=== PATIENT | female | born 1985 | race Caucasian/White ===

== ENCOUNTER 2020-06-27 05:06 | Inpatient (IN) | payer OTHER, SELFPAY ==
[~2020-06-27] VITALS: Ht 162.6 cm; Wt 85.7 kg
[2020-06-27] MEDS ORDERED: ONDANSETRON 4 MG ODT TAB PO ONE ×2 (08:45→09:00)
[2020-06-27] MEDS ORDERED: MORPHINE SULFATE 10 MG/ML VIAL IM ONE (08:45)
[2020-06-27] MEDS ORDERED: FLU VACC QS2020-21 (6 mos & up) 0.5 ML/SYRINGE I.M. PRN (09:45)
[2020-06-27 09:51] VITALS: BP_SYST 136
[2020-06-27] MEDS ORDERED: LR 1,000 ML IV ONE (10:45)
[2020-06-27] MEDS ORDERED: CEFAZOLIN 2 GM IVPB PREMIX 50 ML IV ONE (10:45)
[2020-06-27 11:17] LABS: BASOPHILS # (AUTO) 0.1 K/uL (0.0-0.2); BASOPHILS % (AUTO) 0.8 % (0.0-2.0); EOSINOPHILS % (AUTO) 0.1 % (0.0-4.0); HEMATOCRIT 34.3 % (36-48); HEMOGLOBIN 11.6 g/dL (12.0-16.0); LYMPHOCYTES # (AUTO) 1.5 K/uL (1.0-5.5); LYMPHOCYTES % (AUTO) 16.5 % (20.5-51.5); MEAN CORPUSCULAR HEMOGLOBIN 30 pg (27-31); MEAN CORPUSCULAR HGB CONC 34 % (32-36); MEAN CORPUSCULAR VOLUME 88 fL (79.0-98.0); MONOCYTES # (AUTO) 0.5 K/uL (0.0-1.0); MONOCYTES % (AUTO) 5.6 % (1.7-9.3); NEUTROPHILS # (AUTO) 6.8 K/uL (1.8-7.7); PLATELET COUNT (AUTO) 147 K/uL (130-430); RED BLOOD CELL COUNT(AUTO) 3.88 MIL/uL (4.2-6.2); RED CELL DISTRIBUTION WIDTH 14.2 % (9.0-15.0); WHITE BLOOD COUNT (AUTO) 8.9 K/uL (4.8-10.8)
[2020-06-27] MEDS ORDERED: TEMAZEPAM 15 MG CAPSULE PO PRN (13:15)
[2020-06-27] MEDS ORDERED: SENNOSIDES/DOCUSATE SODIUM 1 TAB TABLET(SENOKOT-S) PO PRN (13:15)
[2020-06-27] MEDS ORDERED: DIPH-TET-PERTUS Vaccine 0.5 ML VIAL (ADACEL) I.M. PRN (13:15)
[2020-06-27] MEDS ORDERED: LANOLIN 7 GM OINT. TP PRN (13:15)
[2020-06-27] MEDS ORDERED: DOCUSATE SODIUM 100 MG CAPSULE PO PRN (13:15)
[2020-06-27] MEDS ORDERED: ANUSOL 1 EA SUPP.RECT (PREPARATION H) RC PRN (13:15)
[2020-06-27] MEDS ORDERED: OXYTOCIN/0.9 % SODIUM CHLORIDE 1,000 ML IV ONE ×2 (13:15→14:29)
[2020-06-27] MEDS ORDERED: OXYCODONE/ACETAMINOPHEN 5-325 TABLET PO PRN ×2 (13:15)
[2020-06-27] MEDS ORDERED: HYDROcodone/ACETAMIN 5-325 MG TAB (NORCO/ VICODIN) PO PRN (13:15)
[2020-06-27] MEDS ORDERED: LR 1,000 ML IV SCH (13:15)
[2020-06-27] MEDS ORDERED: RHO(D) IMMUNE GLOBULIN/MALTOSE 1500 UNITS/1.3 ML (WINHRO) IM PRN (13:15)
[2020-06-27] MEDS ORDERED: MEASLES,MUMPS&RUBELLA VACC/PF 12500 UNIT/0.5 ML VIAL SUBQ PRN (13:15)
[2020-06-27] MEDS ORDERED: BISACODYL 10 MG/SUPPOSITORY RC PRN (13:15)
[2020-06-27 13:22] VITALS: BP_SYST 110
[2020-06-27] MEDS ORDERED: MORPHINE SULFATE 10MG/10ML PF AMP SP SCH (13:30)
[2020-06-27] MEDS ORDERED: DIPHENHYDRAMINE INJ 50 MG/ML VIAL IM PRN (13:30)
[2020-06-27] MEDS ORDERED: NALOXONE HCL 0.4 MG/ML AMP (NARCAN) IVP PRN (13:30)
[2020-06-27] MEDS ORDERED: KETOROLAC TROMETHAMINE 60 MG/2 ML VIAL IM PRN (13:30)
[2020-06-27] MEDS: ONDANSETRON HCL 4 MG/2 ML VIAL IVP PRN ×2 (15:46→20:38)
[2020-06-27] MEDS ORDERED: DEXAMETHASONE SOD PHOSPHATE 4 MG/ML VIAL IVP ONE (17:45)
[2020-06-28 06:32] LABS: BASOPHILS % (AUTO) 0.3 % (0.0-2.0); EOSINOPHILS % (AUTO) 0.1 % (0.0-4.0); HEMATOCRIT 31.4 % (36-48); HEMOGLOBIN 10.5 g/dL (12.0-16.0); LYMPHOCYTES # (AUTO) 1.9 K/uL (1.0-5.5); LYMPHOCYTES % (AUTO) 18.5 % (20.5-51.5); MEAN CORPUSCULAR HEMOGLOBIN 30 pg (27-31); MEAN CORPUSCULAR HGB CONC 34 % (32-36); MEAN CORPUSCULAR VOLUME 89 fL (79.0-98.0); MONOCYTES # (AUTO) 0.6 K/uL (0.0-1.0); MONOCYTES % (AUTO) 6.1 % (1.7-9.3); NEUTROPHILS # (AUTO) 7.5 K/uL (1.8-7.7); PLATELET COUNT (AUTO) 131 K/uL (130-430); RED BLOOD CELL COUNT(AUTO) 3.51 MIL/uL (4.2-6.2); RED CELL DISTRIBUTION WIDTH 14.2 % (9.0-15.0)
[2020-06-28] MEDS: IBUPROFEN 600 MG TABLET PO SCH ×3 (06:57→18:26)
[2020-06-28] MEDS: SIMETHICONE 80 MG TAB.CHEW PO PRN ×2 (11:58→18:26)
[2020-06-28] MEDS ORDERED: METOCLOPRAMIDE HCL 10 MG/2 ML VIAL IVP ONE (18:22)
[2020-06-28] MEDS ORDERED: LR 1,000 ML IV.SOLN IV ONE (18:22)
[2020-06-28] MEDS ORDERED: ONDANSETRON HCL 4 MG/2 ML VIAL IVP ONE (18:22)
[2020-06-28] MEDS ORDERED: MORPHINE SULFATE 10MG/10ML PF AMP EP ONE (18:22)
[2020-06-28] MEDS ORDERED: PHENYLEPHRINE HCL 10 MG/ML VIAL (NEOSYNEPHRINE) IV ONE (18:22)
[2020-06-28] MEDS ORDERED: BUPIVACAINE /DEX PF 0.75% SPINAL 2 ML AMP INJ ONE (18:22)
[2020-06-28] MEDS ORDERED: NS IRRIG SOLN 1000 ML IR ONE (18:22)
[2020-06-29] MEDS: SIMETHICONE 80 MG TAB.CHEW PO PRN ×2 (00:15→13:06)
[2020-06-29] MEDS: IBUPROFEN 600 MG TABLET PO SCH ×2 (00:15→13:06)
[2020-06-29 18:06] LABS: FTA-Ab (T PALLIDUM) Non Reactive (Non Reactive)
== END 2020-06-29 17:00 | disposition home or self-care (01) | DRG 788 ==
LOC: INTOOBSV 05:06 → SPU 05:06 → OBSVTOIN 10:15
PROVIDERS: ADMIT Obstetrics & Gynecology; ATTEND Obstetrics & Gynecology
PROC: 10D00Z1 Extraction of Products of Conception, Low, Open Approach (ICD-10-PCS; principal; 2020-06-27 12:20)
DX: O77.9 Labor and delivery complicated by fetal stress, unspecified (principal); O69.81X0 Labor and delivery complicated by cord around neck, without compression, not applicable or unspecified; O99.214 Obesity complicating childbirth; Z20.828 Contact with and (suspected) exposure to other viral communicable diseases; E66.01 Morbid (severe) obesity due to excess calories; Z3A.39 39 weeks gestation of pregnancy; Z37.0 Single live birth
CPT/HCPCS: 36415; 85025; 86592; 86780; 86886; 86900; 86901; 90715; G0378; J0690; J1100; J2270; J2274; J2370; J2405; J2590; J2765; J3490; J7120; Q0162